=== PATIENT | female | born 1985 | race Caucasian/White ===

== ENCOUNTER 2017-04-17 08:48 | Outpatient (CLI) | payer MEDICAID ==
[2017-04-17 09:15] LABS: Hematocrit 36.9 % (30.3-42.9); Hemoglobin 12.5 gm/dl (10.1-14.3); Mean Corpuscular HGB Conc 34 % (30-34); Mean Corpuscular Hemoglobin 29 pg (28-32); Mean Corpuscular Volume 86 fl (79-97); Platelet Count 220 K/mm3 (140-440)
[2017-04-17 09:45] LABS: Alanine Aminotransferase 13 units/L (7-56); Albumin 4.3 g/dL (3.9-5); BUN/Creatinine Ratio 33; Blood Urea Nitrogen 13 mg/dL (7-17); Calcium 8.9 mg/dL (8.4-10.2); Chol/HDL Ratio 3.75 %; HDL Cholesterol 37 mg/dL (40-59); Hemolysis Index 11; LDL Cholesterol,Direct 77 mg/dL (50-130)
--- NOTE | 2017-04-17 10:49 | Fluoroscopy Report ---
UPPER GI AIR CONTRAST: History: Gastroesophageal reflux. FINDINGS: The patient ingested barium without difficulty. The esophageal contour is normal. There are no ulcerations or filling defects seen in the esophagus. There is normal esophageal motility. There is no hiatal hernia or reflux. The gastric contour and position appear normal. There are no ulcerations or filling defects in the stomach. The duodenal bulb and duodenal sweep appear normal. IMPRESSION: Negative double contrast upper GI examination.
== END 2017-04-17 08:49 | disposition home or self-care (01) ==
LOC: FLUORO 08:48
PROVIDERS: ATTEND Internal Medicine
DX: K21.9 Gastro-esophageal reflux disease without esophagitis (principal)
CPT/HCPCS: 36415; 74246; 80053; 80061; 82785; 84436; 84443; 85027